=== PATIENT | female | born 1965 | race African-American/Black ===

== ENCOUNTER 2018-07-17 12:59 | Emergency (ER) | payer OTHER ==
[~2018-07-17] VITALS: Ht 157.5 cm; Wt 65.8 kg
[2018-07-17 14:33] VITALS: BP 132/78
[2018-07-17] MEDS ORDERED: ALBU2.5V8 INH (14:51)
[2018-07-17] MEDS ORDERED: BENZ100C PO (14:51)
--- NOTE | 2018-07-17 14:51 | PHYS DOC ---
Past Medical History Past Medical History: No Pertinent History Past Surgical History: No Surgical History Alcohol Use: None Drug Use: None Adult General Chief Complaint Chief Complaint: FLU SYMPTOM HPI HPI Patient is a 52 year old female who presents to the emergency room, accompanied by her family with complaints of noise bodyaches, dry cough, diarrhea, decreased appetite, and fatigue for the last week. She reports tactile fevers, and states that she has been feeling worse over the last four days. Patient reports that her pain is currently 2/10 on the pain scale describes the pain is generalized weakness. There are no alleviating or activating factors. Review of Systems Review of Systems Constitutional: see HPI Eyes: Denies changes HENT: denies sore throat or ear pain, reports nasal congestion Respiratory: Denies wheezing or shortness of breath; reports dry cough [] Cardiovascular: No additional information not addressed in HPI [] GI: Denies abdominal pain, nausea, vomiting, or diarrhea [] : Denies dysuria or hematuria [] Musculoskeletal: reports generalized bodyaches Integument: Denies rash or skin lesions [] Neurologic: Denies focal weakness or sensory changes [] Allergies Allergies Allergies Coded Allergies Type Severity Reaction Last Updated Verified No Known Drug Allergies 09/27/15 No Physical Exam Physical Exam Constitutional: Well developed, well nourished, mild distress, ill appearing. [] HENT: Normocephalic, atraumatic, bilateral external ears normal, bilateral TMs normal, posterior pharynx normal,oropharynx moist, no oral exudates, nose normal. [] Eyes: conjunctiva injected, no discharge. [] Neck: Normal range of motion, no tenderness, supple, no stridor. [] Cardiovascular:Heart rate regular rhythm, no murmur [] Lungs & Thorax: Bilateral breath sounds clear to auscultation [] Skin: Warm, dry, no erythema, no rash. [] Extremities: No cyanosis, ROM intact, no edema. [] Neurologic: Alert and oriented X 3, no focal deficits noted. [] Psychologic: Affect normal, judgement normal, mood normal. [] Current Patient Data Vital Signs Vital Signs Date Time Temp Pulse Resp B/P (MAP) Pulse Ox O2 Delivery O2 Flow Rate FiO2 07/17/18 14:33 99 18 132/78 (96) 96 Room Air 07/17/18 13:20 99.3 99.3 EKG EKG [] Radiology/Procedures Radiology/Procedures [] Course & Med Decision Making Course & Med Decision Making Pertinent Labs and Imaging studies reviewed. (See chart for details) dx: flulike symptoms, URI advised patient that since the symptoms have been persistent for longer than 48 hours testing for influenza is useless as the patient is out of the treatment timeframe. encourage patient to increase clear fluids, take [id number] cough suppressants as needed. Will prescribed albuterol inhaler and Tessalon perrles. Pt verbalized an understanding of discharge, medications, follow-up, home care, and return to ED precautions, was in agreement with POC. [] Dragon Disclaimer Dragon Disclaimer This electronic medical record was generated, in whole or in part, using a voice recognition dictation system. Departure Departure Impression: Primary Impression: Flu-like symptoms Additional Impression: Upper respiratory infection, acute Disposition: HOME, SELF-CARE Condition: STABLE Referrals: NO PCP (PCP) Patient Instructions: Upper Respiratory Infection, Adult, [id number] Additional Instructions: Fill prescription(s) and use as directed. Recommend use of a Cool mist humidifier in room at bedtime. Alternate Tylenol or ibuprofen as needed for pain /fever. Increase clear fluids. Avoid airway triggers such as smoke, fragrance, dust, and pollen. Follow-up with your primary care doctor symptoms persist, return to the ER symptoms worsen. Scripts Albuterol Sulfate (PROAIR HFA INHALER) 8.5 Gm Hfa.aer.ad 1-2 PUFF INH PRN Q6HRS PRN for SHORTNESS OF BREATH for 10 Days, #1 INHALER 0 Refills Prov: ELPIDIO ELMORE APRN 07/17/18 Benzonatate (TESSALON PERLE) 100 Mg Capsule 100 MG PO TID PRN for COUGH for 7 Days, #21 CAP 0 Refills Prov: ELPIDIO ELMORE APRN 07/17/18 Problem Qualifiers ELPIDIO ELMORE APRN Jul 17, 2018 14:51
== END 2018-07-17 15:04 | disposition home or self-care (01) ==
LOC: ER 12:59
DX: J06.9 Acute upper respiratory infection, unspecified (principal)
CPT/HCPCS: 99283